=== PATIENT | male | born 1945 | race Caucasian/White ===

== ENCOUNTER 2022-02-17 10:41 | Outpatient (CLI) | payer MEDICARE, BC | END 2022-02-17 10:42 | disposition home or self-care (01) | LOC: CSHLAB 10:41 | PROVIDERS: ATTEND Surgery | DX: Z01.818 Encounter for other preprocedural examination (principal); Z20.822 Contact with and (suspected) exposure to COVID-19; K40.90 Unilateral inguinal hernia, without obstruction or gangrene, not specified as recurrent | CPT/HCPCS: 93005; 93010; U0003; U0005 ==

== ENCOUNTER 2022-02-20 06:39 | Day surgery (SDC) | payer MEDICARE, BC ==
[2022-02-17 14:54] VITALS: BMI 20.9
[2022-02-20] MEDS ORDERED: Lidocaine 1% MPF 2 ML VIAL ONE (06:52)
[2022-02-20] MEDS ORDERED: EPINEPHrine 1 MG/ML AMP ONE (07:51)
[2022-02-20] MEDS ORDERED: Bupivacaine PF 0.5% 30 ML VIAL ONE (07:51)
[2022-02-20] MEDS ORDERED: Dexamethasone 4 mg/ml Vial ONE (08:50)
[2022-02-20] MEDS ORDERED: Ondansetron PF 4 MG/2 ML Vial ONE (08:50)
[2022-02-20] MEDS ORDERED: Fentanyl 100 MCG/2 ML VIAL ONE (08:50)
[2022-02-20] MEDS ORDERED: Lidocaine 1% PF 5 ML VIAL ONE (08:50)
[2022-02-20] MEDS ORDERED: Rocuronium Bromide 10 MG/ML (10ML VIAL) ONE (08:50)
[2022-02-20] MEDS ORDERED: PROPOFOL 20 ML ONE (08:50)
[2022-02-20] MEDS ORDERED: ceFAZolin 2 GM/Dextrose 50 ML IVPB ONE (08:53)
[2022-02-20] MEDS ORDERED: ePHEDrine Sulfate 50 MG/10 ML VIAL ONE (09:25)
[2022-02-20] MEDS ORDERED: SUGAMMADEX SODIUM 200 MG/2 ML VIAL ONE (09:59)
[2022-02-20] MEDS ORDERED: Acetaminophen 325 MG TAB PO PRN (10:22)
[2022-02-20] MEDS ORDERED: HYDROcodone/Acetaminophen 5/325 mg Tablet PO PRN (10:22)
== END 2022-02-20 11:35 | disposition home or self-care (01) ==
LOC: CSHSDC 06:39
PROVIDERS: ATTEND Surgery
PROC: 0YQ54ZZ Repair Right Inguinal Region, Percutaneous Endoscopic Approach (ICD-10-PCS; principal; 2022-02-20)
DX: K40.90 Unilateral inguinal hernia, without obstruction or gangrene, not specified as recurrent (principal); E11.9 Type 2 diabetes mellitus without complications; Z79.84 Long term (current) use of oral hypoglycemic drugs
CPT/HCPCS: 49650; C1713; J0171; J0690; J1100; J2405; J2704; J3010; S0020

== ENCOUNTER 2023-05-06 10:23 | Emergency (ER) | payer MEDICARE, BC ==
[2023-05-06 11:05] LABS: #Eosinphils 0.1 10x3/uL (0.0-0.5); #Monocytes 0.5 10x3/uL (0.0-1.1); #Neutrophils 3.1 10x3/uL (1.5-8.4); %Basophils 0.6 % (0.0-2.0); %Eosinophils 1.2 % (0.0-6.0); %Lymphocytes 26.8 % (18.0-47.0); %Monocytes 9.3 % (0.0-10.0); %Neutrophils 61.9 % (40.0-75.0); Hemoglobin 15.4 g/dL (13.5-17.5); Mean Corpuscular HGB CONC 34.2 g/dL (32.0-36.0); Mean Corpuscular Hemoglobin 30.9 pg (27.0-33.0); Mean Corpuscular Volume 90.2 fl (81.2-95.1); Mean Platelet Volume 11.9 fl (7.4-10.4); Platelet Count 143 10x3/uL (150-450); RBC Distribution Width 12.2 % (11.5-14.5); Red Blood Cell (RBC) Count 4.99 10x6/uL (4.32-5.72)
[2023-05-06 11:16] LABS: ALT (SGPT) 18 U/L (8-55); AST (SGOT) 21 U/L (5-34); Albumin 4.6 g/dL (3.4-4.8); Alkaline Phosphatase 96 U/L (40-110); Anion Gap 15 mmol/L (10-20); BUN (Urea Nitrogen) 22 mg/dL (8.4-25.7); Bilirubin, Total 1.1 mg/dL (0.2-1.2); Calc. Creatinine Clearance 0 mL/min (70-130); Calcium 9.5 mg/dL (7.8-10.44); Carbon Dioxide 28 mmol/L (23-31); Chloride 103 mmol/L (98-107); Estimated GFR 81; Globulin 2.6 g/dL (2.4-3.5); Glucose 151 mg/dL (83-110); Lipase 22 U/L (8-78); Potassium 3.7 mmol/L (3.5-5.1); Protein, Total 7.2 g/dL (5.8-8.1); Sodium 142 mmol/L (136-145)
[2023-05-06 11:19] LABS: Troponin I Less than 0.010 ng/mL (< 0.028)
[2023-05-06 12:37] LABS: Bilirubin Neg (Negative); Blood, Urine 25 (Negative); Clarity Clear (Clear); Glucose, Urine (Dipstick) Normal (Negative); Ketone, Urine 15 mg/dL (Negative); Leukocyte Negative (Negative); Nitrite Negative (Negative); Protein, Urine (Dipstick) 15 mg/dl (Neg-Trace); Specific Gravity, Urine 1.015 (1.005-1.030); Urobilinogen Normal mg/dL (Less than 2)
[2023-05-06 12:45] LABS: Amphetamine Not Detected (NotDetected); Barbiturates Screen Not Detected (NotDetected); Benzodiazepine Screen Not Detected (NotDetected); Cocaine Metabolite Screen Not Detected (NotDetected); Methadone Not Detected (NotDetected); Methamphetamine Not Detected (NotDetected); Opiate Screen Not Detected (NotDetected); Oxycodone Screen Not Detected (NotDetected); Phencyclidine (PCP) Not Detected (NotDetected); THC/Cannabinoid Screen Not Detected (NotDetected); Tricyclic Screen Not Detected (NotDetected)
[2023-05-06 13:16] LABS: CAUTI Indications for Culture Alt mental st,lethar; RBC/HPF 0-3 HPF (0-3); WBC/HPF 0-3 HPF (0-3)
[2023-05-06 13:17] LABS: Bacteria/HPF None Seen HPF (None Seen); Squamous Epithelial None Seen HPF (0-3)
[2023-05-06 13:18] LABS: Urine Culture Reflex No No
[2023-05-06] MEDS ORDERED: levETIRAcetam 500 MG/5 ML VIAL ONE (18:06)
== END 2023-05-06 18:27 | disposition short-term general hospital (02) ==
LOC: CSHERS 10:23
DX: H53.15 Visual distortions of shape and size (principal); G93.40 Encephalopathy, unspecified; H54.7 Unspecified visual loss; E11.9 Type 2 diabetes mellitus without complications
CPT/HCPCS: 36415; 36416; 70450; 80053; 80306; 81001; 83605; 83690; 84484; 85025; 87040; 93005; J1953